=== PATIENT | male | born 1950 | race Caucasian/White ===

== ENCOUNTER 2018-04-11 08:31 | Day surgery (SDC) | payer BC ==
--- NOTE | 2018-04-11 07:13 | History and Physical - [place] ---
CHIEF COMPLAINT/HISTORY OF CHIEF COMPLAINT: This patient with a history of a post laminectomy radiculopathy is here for an implanted spinal catheter infusion trial with Hydromorphone. His treatment history has been extensive and unsuccessful. His diagnostics show fusion lumbar spine at L4-L5 with pedicle screw and rods. PAST MEDICAL HISTORY: Hypertension, reflux esophagitis, cardiovascular disease and sleep apnea. PAST SURGICAL HISTORY: Multiple lumbar laminectomies, hand surgery, and knee surgery. MEDICATIONS ON ADMISSION: List to be provided. ALLERGIES: None reported. FAMILY/PSYCHOSOCIAL HISTORY: Social history - Smoking, social alcohol, and caffeine. Family history - Diabetes and coronary artery disease. SYSTEMS REVIEW: The patient seems appropriate, somewhat anxious in no acute distress. PHYSICAL EXAMINATION: Height is 6', weight is 200 pounds. No vital signs. HEENT: Within normal limits. LUNGS: Clear. HEART: Rapid and regular. ABDOMEN: Nontender. MUSCULOSKELETAL: Examination of the musculoskeletal system shows diffuse tenderness at the lumbar spine. Range of motion does cause pain throughout the low back and extending into both lower extremities. There were mild sensory abnormalities across the front and back surface of his lower extremities. Mild weakness in his lower extremities. NEUROLOGIC: Cranial nerves are intact. Ambulation - No assistive device utilized. IMPRESSION: POST LUMBAR LAMINECTOMY SYNDROME, ICD-10 CODE M96.1 WITH RADICULOPATHY, ICD-10 CODE M54.16 AND M54.17. PLAN: The patient is here for an implanted spinal catheter infusion trial with Hydromorphone. An overnight stay will be evaluated. The potential risks, side effects, and complications have been reviewed including paralysis, and nerve root injury. An epidural blood patch will be performed as a prophylactic measure to prevent spinal headache. JOB NUMBER: [id number] [facility]
[~2018-04-11 08:31] MED LIST: ACETAMINOPHEN 1,000 MG/100 ML BTL IV ONE; CEFAZOLIN 2 Gram 2 GM/50 ML BAG IVPB ONE; FAMOTIDINE 20MG TABLET PO ONE; HYDROMORPHONE PF 2MG/ML AMP 0.008 MG in 0.9 % SODIUM CHLORIDE 10ML VIA 0.996 ML IV ONE; HYDROMORPHONE PF 2MG/ML AMP 8 MG in 0.9 % SODIUM CHLORIDE 500ML 496 ML IV ONE; MECLIZINE 25 MG TABLET PO ONE; METOCLOPRAMIDE 10 MG TABLET PO ONE
[2018-04-11] MEDS ORDERED: BUPIVACAINE 0.5% W/EPI MPF 30 ML VIAL IVP ONE (08:32)
[2018-04-11] MEDS ORDERED: CEFAZOLIN 1G VIAL IM ONE (08:32)
[2018-04-11] MEDS ORDERED: HYDROMORPHONE HCL 2 MG/ML VIAL IV ONE (08:32)
[2018-04-11] MEDS ORDERED: MIDAZOLAM HCL 2MG/2ML VIAL IV ONE (08:32)
[2018-04-11] MEDS ORDERED: PROPOFOL 10 MG/ML VIAL IV ONE (08:32)
[2018-04-11] MEDS ORDERED: LIDOCAINE 2% MDV (20MG/ML) 20ML VIAL IV ONE (08:32)
[2018-04-11] MEDS ORDERED: LIDOCAINE 1% W/EPI 1:200,000 MPF 30ML SQ ONE (08:32)
[2018-04-11] MEDS ORDERED: FENTANYL PF 100MCG/2ML VIAL IV ONE (08:32)
[2018-04-11] MEDS ORDERED: DIPHENHYDRAMINE HCL 50 MG/ML VIAL IVP PRN ×2 (12:54)
[2018-04-11] MEDS ORDERED: DIPHENHYDRAMINE HCL 25 MG CAPSULE PO PRN ×2 (12:54)
[2018-04-11] MEDS ORDERED: OXYCODONE/APAP 10MG-325MG TABLET PO PRN ×2 (12:54)
[2018-04-11] MEDS ORDERED: TEMAZEPAM 15 MG CAPSULE PO PRN ×2 (12:54)
[2018-04-11] MEDS ORDERED: RINGERS SOLUTION,LACTATED 1,000 ML IV SCH (12:54)
[2018-04-11] MEDS ORDERED: METOCLOPRAMIDE HCL 10 MG/2 ML VIAL IVP PRN (12:54)
[2018-04-11] MEDS ORDERED: ACETAMINOPHEN 325 MG TAB PO PRN ×2 (12:54)
[2018-04-11] MEDS ORDERED: HYDROCODONE/APAP 7.5/325MG TABLET PO PRN ×2 (12:54)
[2018-04-11] MEDS ORDERED: METOCLOPRAMIDE 10 MG TABLET PO PRN (12:54)
[2018-04-11] MEDS ORDERED: NALOXONE 0.4 MG/1 ML VIAL IVP PRN (12:54)
[2018-04-11] MEDS ORDERED: AL HYDROX/MAG HYDROX 30ML UD PO PRN (12:54)
[2018-04-11] MEDS ORDERED: HYDROMORPHONE HCL 2 MG/ML VIAL IM PRN ×2 (12:54)
[2018-04-11] MEDS ORDERED: SENNOSIDES/DOCUSATE SODIUM UD CAPSULE PO PRN ×2 (12:54)
[2018-04-11] MEDS ORDERED: CEFAZOLIN 2 Gram 2 GM/50 ML BAG IVPB SCH (19:30)
--- NOTE | 2018-04-13 08:54 | RADIOLOGY REPORT ---
EXAM: THORACOLUMBAR SPINE HISTORY: PAIN PUMP TRIAL. TECHNIQUE: A single frontal view of the thoracolumbar spine was obtained. Comparison: Intraprocedural fluoroscopy 04/11/18. FINDINGS: Device tubing superimposes the left carlin-abdomen and left paramedian lower lumbar region. Lower lumbar spine posterior instrumentation is noted. Multilevel lumbar spine degenerative findings. Please see clinician notes for procedural details. IMPRESSION: ABOVE. JOB NUMBER: [id number] MTDD
--- NOTE | 2018-04-13 08:54 | Operative Note ---
DATE: 04/11/2018. PREOPERATIVE DIAGNOSIS: 1. POSTLUMBAR LAMINECTOMY SYNDROME, ICD-10 CODE M96.1. 2. RADICULOPATHY, ICD-10 CODE M54.16 AND M54.17. PROCEDURES: 1. Fluoroscopically guided epidural access at L2-3. Placement of thin-walled spinal catheter at T11-12. 2. Diagnostic myelography with radiologic supervision and interpretation. 3. Spinal opioid bolus of hydromorphone into the spinal space 0.004 mg. 4. Incision, subcutaneous dissection, and anchoring of supraspinous fascia and anchoring of catheter to supraspinous fascia with an anchoring device and nonabsorbable suture. 5. Incision, subcutaneous dissection, and creation of subcutaneous pouch at the left flank for placement of pump. 6. Tunneling between midline pouch into flank pouch extending spinal catheter into pouch. Interface spinal catheter with second catheter component by way of connector. 7. Tunneling of second catheter component 6.0 cm superior to the pouch exiting the skin. Interface to external pump set to deliver hydromorphone at 0.16 mg per day. 8. Closure of incisions with Vicryl for the fascia and running nylon for the skin. 9. Epidural blood patch at L3-4 with 20 mL autologous blood drawn with sterile technique, left antecubital. 10. Dressings placed, securing catheter and all connections under sterile dressing. 11. Patient transported to the recovery room stable no side effects from the procedure, flat with a pillow under the head and knees SURGEON: Andres Thomas D.O. ANESTHESIA: Local sedation. ANESTHESIA PROVIDER: Tereso Sweet CRNA. INDICATIONS: This patient presents with a history of intractable postlaminectomy lumbar radiculopathy. Diagnostics confirm fusion of the lumbar spine at 5-1. Due to the failure therapy, he is here for a spinal opioid infusion trial with an implanted catheter technique using hydromorphone. DESCRIPTION OF PROCEDURE: Intravenous lines, vital sign monitoring, and intravenous sedation by Anesthesia. The patient was positioned prone. Prepped and draped with sterile technique. Under imaging above the fusion, the spinal interspace at L2-3 and the epidural interspace at L3-4 was marked and infiltrated with local. At 2-3, using a 20-gauge spinal needle the spinal space was accessed. With cerebrospinal fluid flow, a thin-walled spinal catheter was advanced and positioned at T11-12. Diagnostic myelography showed appropriate flow characteristics and no abnormal flow. The patient did not acknowledge any abnormal pain. With this confirmation of position and appropriate flow characteristics, a bolus of hydromorphone 0.004 mg was given. The skin above and below the needle was infiltrated. An incision was made and subcutaneous dissection was conducted to the supraspinous fascia. The needle was removed, and then the catheter was anchored to the supraspinous fascia with an anchoring device and nonabsorbable suture. At the left flank, ultimately the site picked for the pump, the skin was infiltrated. An incision was made and subcutaneous dissection was conducted to form a small pouch. The spinal catheter was then tunneled into the flank pouch and then interfaced with the second catheter component by way of a connector. The second catheter component was tunneled 6.0 cm superior exiting the skin. The external catheter was then interfaced to an external pump which was set to deliver hydromorphone at 0.016 ____ OR 0.16 mg a day. The midline incision was then closed using Vicryl for the fascia and running nylon for the skin. The left flank pouch incision was closed with running nylon. The epidural interspace at L3-4 was then infiltrated. An 18-gauge Tuohy needle was placed with loss of resistance into the space. A total of 20 mL of autologous blood was drawn using sterile technique from the left antecubital area. An epidural blood patch was then performed with this blood at this level. The interspaces at 3-4 and 2-3 were selected because of the fusion at 5- 1, a probable laminectomy, poor visual access at 4-5, and degenerative disease. Sterile dressing was applied to secure the catheter and all connections under sterile dressing. He was transported to the recovery room flat with a pillow under the head and knees. He had full functionality of the extremities and identified no unusual pain. He was responsive and appropriate. He will be kept flat for four hours and then slowly elevated for one hour. He was encouraged to stay overnight for observation. A previous implanted catheter trial had to be discontinued because of a spinal headache occurrence. With that in mind, we performed the blood patch. Keeping him flat for four and slowly elevating him for one hour will keep him inactive if he stays inhouse. If he is to be discharged as he is requesting, he is to keep his activities down. DISCHARGE INSTRUCTIONS: 1. He will be seen in the office within the next 24 to 48 hours for his first increase. 2. Activities should stay controlled. 3. All other instructions were provided including numbers to contact with problems. 4. He will then be prepared for discharge or will be kept overnight. JOB NUMBER: [id number] cc: Ken Felton M.D. MTDFredis
== END 2018-04-11 20:49 | disposition home or self-care (01) ==
LOC: SUR 08:31 → MEDSURG 13:37 → SUR 20:49
PROVIDERS: ATTEND Pain Medicine Interventional Pain Medicine
DX: M96.1 Postlaminectomy syndrome, not elsewhere classified (principal); M54.16 Radiculopathy, lumbar region; M54.17 Radiculopathy, lumbosacral region; Z95.5 Presence of coronary angioplasty implant and graft; Z79.01 Long term (current) use of anticoagulants; I10 Essential (primary) hypertension; E78.00 Pure hypercholesterolemia, unspecified; Z79.4 Long term (current) use of insulin
CPT/HCPCS: 62350; 62362; 01936; 62273; 36416; 82948; 85002; 72020; J0690; J1170; J7040; J7120

== ENCOUNTER 2018-04-18 12:13 | Day surgery (SDC) | payer BC ==
--- NOTE | 2018-04-18 07:39 | History and Physical - [place] ---
CHIEF COMPLAINT/HISTORY OF CHIEF COMPLAINT: This patient with an ongoing spinal infusion trial implanted catheter using Hydromorphone presents for permanent implantation. PAST MEDICAL HISTORY: Hypertension, reflux esophagitis, cardiovascular disease and sleep disturbance. PAST SURGICAL HISTORY: Unchanged. MEDICATIONS ON ADMISSION: Unchanged. ALLERGIES: Unchanged. FAMILY/PSYCHOSOCIAL HISTORY: Social history - Unchanged. Family history - Unchanged. SYSTEMS REVIEW: The patient is appropriate in no acute distress. PHYSICAL EXAMINATION: Height is 6', weight is 200 pounds. Vital signs noted from previous. HEENT: Within normal limits. LUNGS: Clear. HEART: Rapid and slightly irregular. Lungs coarse and rhonchitic. MUSCULOSKELETAL: Examination of the musculoskeletal system shows the dressing for implanted catheter trial to be intact. Chronic pain pattern is low back and the lower extremity examination shows diffuse tenderness throughout the lumbar spine adjacent to the laminectomy scar. Range of motion does produce pain into both legs. There are motor and sensory abnormalities into both lower extremities. Ambulation is antalgic and an assistive device is utilized. NEUROLOGIC: Cranial nerves are intact. IMPRESSION: 1. POST LUMBAR LAMINECTOMY SYNDROME, ICD-10 CODE M96.1 WITH RADICULOPATHY, ICD- 10 CODE M54.16 AND M54.17. 2. IMPLANTED SPINAL CATHETER INFUSION TRIAL WITH HYDROMORPHONE. PLAN: The patient is here for a permanent implantation of a spinal opioid infusion system device based on the successful trial. We will consider the procedure to be outpatient, although an overnight stay will be evaluated. JOB NUMBER: [id number] MTDD
[~2018-04-18 12:13] MED LIST changes: +HYDROMORPHONE HCL 0.04 GM in 0.9 % SODIUM CHLORIDE 10ML VIA 20 ML IV ONE; -HYDROMORPHONE PF 2MG/ML AMP 8 MG in 0.9 % SODIUM CHLORIDE 500ML 496 ML IV ONE
[2018-04-18] MEDS ORDERED: MIDAZOLAM HCL 2MG/2ML VIAL IV ONE (12:14)
[2018-04-18] MEDS ORDERED: LIDOCAINE 1% W/EPI 1:200,000 MPF 30ML SQ ONE (12:14)
[2018-04-18] MEDS ORDERED: 0.9 % SODIUM CHLORIDE 10 ML VIAL IVP ONE (12:14)
[2018-04-18] MEDS ORDERED: CEFAZOLIN 1G VIAL IM ONE (12:14)
[2018-04-18] MEDS ORDERED: PROPOFOL 10 MG/ML VIAL IV ONE (12:14)
[2018-04-18] MEDS ORDERED: BUPIVACAINE 0.5% W/EPI MPF 30 ML VIAL IVP ONE (12:14)
[2018-04-18] MEDS ORDERED: LIDOCAINE 2% MDV (20MG/ML) 20ML VIAL IV ONE (12:14)
[2018-04-18] MEDS ORDERED: KETAMINE HCL 100MG/1ML VIAL INJ ONE (12:14)
[2018-04-18] MEDS ORDERED: FENTANYL PF 100MCG/2ML VIAL IV ONE (12:14)
--- NOTE | 2018-04-19 19:57 | Operative Note ---
DATE OF SURGERY: 04/18/2018. PREOPERATIVE DIAGNOSES: 1. POST LUMBAR LAMINECTOMY SYNDROME, ICD-10 CODE = M96.1 WITH RADICULOPATHY, ICD-10 CODE = M54.16 AND M54.17. 2. IMPLANTED SPINAL CATHETER INFUSION TRIAL HYDROMORPHONE. SURGERY: 1. FLUOROSCOPIC-GUIDED INCISION, SUBCUTANEOUS DISSECTION, AND FORMATION OF SUBCUTANEOUS POUCH AT LEFT FLANK FOR PLACEMENT OF PUMP IDENTIFIED A MEDTRONIC 20 ML PROGRAMMABLE. 2. RESECTION AND REMOVAL OF EXTERNAL CATHETER PULLING AWAY FROM INCISIONAL SITE THROUGH SKIN. 3. REVISION INTERNAL IMPLANTED SPINAL CATHETER WITH SECOND CATHETER COMPONENT BY WAY OF CONNECTOR. SECOND CATHETER COMPONENT , OR REVISION COMPONENT, TO INTERFACE WITH PUMP. 4. PLACEMENT OF 20 ML PROGRAMMABLE PUMP MEDTRONIC PRE-FILLED WITH HYDROMORPHONE 1 MG PER ML ONTO FIELD. INTERFACE TO REVISED SPINAL CATHETER. 5. PLACEMENT OF PUMP INTO FORMED SUBCUTANEOUS POUCH AT LEFT FLANK SECURING TO POSTERIOR FASCIA WITH NONABSORBABLE SUTURE, THREE-POINT PUMP EYELETS. 6. WITH PUMP IN POUCH, PLACEMENT OF CURVED #24 GAUGE TIRADO NEEDLE INTO ACCESS PORT, ASPIRATION AND REMOVAL OF 1 ML OF CATHETER CONTENTS CLEARING CATHETER OF OPIOID AND CSF MIXTURE. 7. DIAGNOSTIC MYELOGRAPHY WITH RADIOLOGIC SUPERVISION AND INTERPRETATION SHOWING CONTRAST MOVING THROUGH PUMP CATHETER CONNECTION, NO KINKS, BENDS, OR LEAKS. TIP OF CATHETER IDENTIFIED AT T11 CONFIRMING FUNCTIONALITY OF CATHETER PUMP. 8. CLOSURE OF INCISION USING STRATAFIX SUTURE, #2-0 FASCIA, #3-0 SKIN. DERMABOND CLOSURE. 9. PROGRAMMING OF PUMP TO DELIVER BY CONTINUOUS INFUSION HYDROMORPHONE AT 0.9 MG PER DAY. SURGEON: SAM MYERS D.O. ANESTHESIA: LOCAL SEDATION. ANESTHESIA PROVIDER: KEN SHAFFER CRNA. INDICATIONS: This patient with a history of a post laminectomy radiculopathy has an implanted catheter infusion trial of Hydromorphone with 75% pain control. Due to the failure of all other therapies and the success of the implanted catheter trial, the patient is here for implantation by his request of a permanent system. PROCEDURE: Intravenous line, vital sign monitoring, IV sedation, prepped draped sterile technique. Under imaging, at the left flank, a site previously identified, skin infiltrated, incision made and subcutaneous dissection was conducted to form a pouch of suitable size and depth for the pump, a Medtronic 20 mL programmable. The interface between the implanted catheter and the external catheter was then identified, clamped and cut, and the external catheter was removed by pulling away from the incision. The permanent indwelling catheter was then revised and resected with a second catheter component by way of connector. This second catheter component will interface to pump. A new pump placed onto the field, 20 mL programmable, pre-filled with Hydromorphone 1 mg per mL was then interfaced to the revised spinal catheter. The pump was placed into the formed pouch and secured to the posterior fascia with nonabsorbable suture using the pump eyelets at three points. With the pump into the pouch, a curved #24 gauge Tirado needle was inserted into the access port and 1 mL of catheter contents was aspirated clearing the catheter of opioid and CSF mixture. Diagnostic myelography was then performed. Through the access port, contrast flow was noted under imaging moving through the pump and moving through the pump catheter connection. No kinks, bends, or leaks. The tip of the catheter identified at T11 with smooth linear flow of myelogram characteristics identified. Contrast study confirming functionality and integrity of the system. The incision was then closed using STRATAFIX suture, #2 -0 fascia, #3-0 skin. Dermabond closure of the incision. The patient was transported to the Recovery Room stable with no side-effects from the procedure or the sedation. He was monitored until stable and then prepared for discharge. DISCHARGE INSTRUCTIONS: 1. The site is to remain clean and dry. Although the Dermabond will allow showering, he should not sit in water. 2. He will continue his IV antibiotics for another 7 days. 3. The office will contact the patient in 12 to 24 hours to set up a time in the next 7 to 10 days for us to evaluate his incisional sites. Until then, his activities should stay controlled. 4. Spinal opioid side-effects including respiratory depression, nausea, vomiting, constipation, urinary retention, light headedness or rash have all been discussed and reviewed. All other instructions provided, numbers to contact if problems were given. He will be seen in 7 to 10 days. cc: Dr. Ken Felton JOB NUMBER: [id number] MTDD
== END 2018-04-18 16:06 | disposition home or self-care (01) ==
LOC: SUR 12:13
PROVIDERS: ATTEND Pain Medicine Interventional Pain Medicine
DX: M96.1 Postlaminectomy syndrome, not elsewhere classified (principal); M54.16 Radiculopathy, lumbar region; M54.17 Radiculopathy, lumbosacral region; I10 Essential (primary) hypertension; Z79.01 Long term (current) use of anticoagulants; E78.00 Pure hypercholesterolemia, unspecified; E11.9 Type 2 diabetes mellitus without complications; Z79.4 Long term (current) use of insulin; K21.9 Gastro-esophageal reflux disease without esophagitis
CPT/HCPCS: 62350; 62362; 01936; 62367; 36416; 82948; Q9967; J3010; J0690; J1170; J3490; C1755